=== PATIENT | male | born 1950 | race Caucasian/White ===

== ENCOUNTER 2016-07-18 12:36 | Inpatient (IN) | payer MEDICARE, OTHER ==
[~2016-07-18] VITALS: Ht 170.2 cm; Wt 82.6 kg
[2016-07-18] VITALS (26 sets, daily range): BP systolic 90–165; BP diastolic 53–103
[~2016-07-18 12:36] MED LIST: ASPI-1035 PO; ATOR40TA70 PO; CARV6.2548 PO; CHOL100026 PO; FURO40TA5 PO; GABA-529 PO; GLIP10TA10 PO; LEVO50TA8 PO; LINA5TAB PO
[2016-07-18] MEDS ORDERED: NICARDIPINE 100 MG in SODIUM CHLORIDE 0.9% 60 ML IV PRN (13:45)
[2016-07-18] MEDS ORDERED: MANNITOL 12.5G (25%) VIAL 50ML IV SCH (14:00)
[2016-07-18 14:14] LABS: INR 1.1
[2016-07-18 14:16] LABS: ALBUMIN 3.5 g/dL (3.4-5.0); ANION GAP 14; CALCIUM 8.7 mg/dL (8.5-10.1); CARBON DIOXIDE 26 mEq/L (21-32); CHLORIDE 103 mEq/L (98-107); INDEX HEMOLYSI 1 (1-3); INDEX ICTERIC 1 (1-4); INDEX LIPEMIC 1 (1-3); LIPASE 153 IU/L (73-393); UREA NITROGEN BLOOD 23 mg/dL (7-21)
[2016-07-18 14:22] LABS: ALANINE AMINOTRANSFERASE 22 IU/L (13-61); TROPONIN I 0.26 ng/mL (0.00-0.04); eGFR > 60 mL/min (>60)
[2016-07-18 14:24] LABS: BASOPHILS % 0.3 % (0.0-2.0); EOSINOPHILS % 2.8 % (0.0-5.0); LYMPHOCYTES % 24.2 % (20.0-50.0); MEAN CORPUSCULAR HEMOGLOBIN 30.1 pg (28.0-32.0); MEAN CORPUSCULAR HGB CONC 34.3 g/dL (31.0-37.0); MEAN CORPUSCULAR VOLUME 87.6 fL (80.0-94.0); MEAN PLATELET VOLUME 8.2 fl (7.4-10.4); MONOCYTES % 8.9 % (2.0-8.0); NEUTROPHILS % 63.8 % (40.0-76.0); PLATELET 226 x1000/uL (130-400); RED BLOOD CELL COUNT 4.33 mill/uL (4.7-6.1); RED CELL DISTRIBUTION WIDTH 13.2 % (11.6-14.6); WHITE BLOOD COUNT 6.9 x1000/uL (4.5-11.0)
[2016-07-18] MEDS ORDERED: SODIUM CHLORIDE 0.9% 500 ML IV ONE (15:24)
[2016-07-18] MEDS: PHENYTOIN SODIUM 100MG/2ML VIAL IV SCH ×2 (15:27→22:20)
[2016-07-18] MEDS: MANNITOL 20% 100 ML IV SCH ×2 (15:35→20:15)
[2016-07-18] MEDS: NICARDIPINE 100 MG in SODIUM CHLORIDE 0.9% 60 ML IV PRN (16:11)
[2016-07-18 17:03] LABS: CLARITY URINE CLEAR (CLEAR); COLOR URINE YELLOW (YELLOW); GLUCOSE URINE NEGATIVE (NEGATIVE); KETONES URINE NEGATIVE (NEGATIVE); LEUKOCYTE ESTERASE URINE NEGATIVE (NEGATIVE); NITRITE URINE NEGATIVE (NEGATIVE); OCCULT BLOOD URINE TRACE (NEGATIVE); PH URINE 5.5 (4.5-8.0); PROTEIN URINE NEGATIVE (NEGATIVE); SPECIFIC GRAVITY URINE 1.013 (1.005-1.030); UROBILINOGEN URINE 0.2 E.U./dL (0.2-1.0)
[2016-07-18] MEDS: DEXAMETHASONE 4MG/ML 1ML VIAL IV SCH ×2 (17:27→23:18)
[2016-07-18] MEDS: DEXT 5%/LACTATED RINGERS 1,000 ML IV SCH (17:27)
[2016-07-18 17:29] LABS: BACTERIA URINE NONE SEEN; RBC URINE NONE SEEN /hpf (0-2); SQUAMOUS EPITHELIAL CELL URINE RARE /lpf (RARE/1+); WBC URINE NONE SEEN /hpf (0-2)
[2016-07-19] VITALS (95 sets, daily range): BP systolic 89–198; BP diastolic 49–157
[2016-07-19] MEDS: MANNITOL 20% 100 ML IV SCH ×3 (02:17→13:39)
[2016-07-19] MEDS: DEXAMETHASONE 4MG/ML 1ML VIAL IV SCH ×4 (05:32→23:50)
[2016-07-19] MEDS: PHENYTOIN SODIUM 100MG/2ML VIAL IV SCH ×3 (05:32→21:06)
[2016-07-19] MEDS: CEFAZOLIN 1000MG PREMIX 50 ML IV SCH ×3 (08:27→21:06)
[2016-07-19] MEDS ORDERED: DEXTROSE 50% WATER 50ML SYRINGE IV PRN ×2 (08:30→13:00)
[2016-07-19] MEDS ORDERED: INSULIN LISPRO 100 UNITS/ML SUBCUT SCH ×2 (12:00→13:00)
[2016-07-19] MEDS: DEXT 5%/LACTATED RINGERS 1,000 ML IV SCH (12:05)
[2016-07-19] MEDS: PANTOPRAZOLE SODIUM 40 MG/VIAL IV SCH (12:05)
[2016-07-19] MEDS: BLOOD SUGAR DIAGNOSTIC STRIP TEST SCH ×3 (12:06→21:23)
[2016-07-19] MEDS: INSULIN LISPRO 100 UNITS/ML SUBCUT SCH ×3 (12:55→21:28)
[2016-07-19] MEDS ORDERED: CEFAZOLIN SODIUM 1000MG/VIAL IV SCH (14:00)
[2016-07-19] MEDS: NICARDIPINE 100 MG in SODIUM CHLORIDE 0.9% 60 ML IV PRN (21:02)
[2016-07-20] VITALS (68 sets, daily range): BP systolic 116–176; BP diastolic 54–93
[2016-07-20 04:48] LABS: HEMOGLOBIN. 11.5 g/dL (14.0-18.0); MEAN CORPUSCULAR HEMOGLOBIN 29.6 pg (28.0-32.0); MEAN CORPUSCULAR VOLUME 86.9 fL (80.0-94.0); MEAN PLATELET VOLUME 8.5 fl (7.4-10.4); PLATELET 226 x1000/uL (130-400); RED BLOOD CELL COUNT 3.91 mill/uL (4.7-6.1); RED CELL DISTRIBUTION WIDTH 13.6 % (11.6-14.6); WHITE BLOOD COUNT 14.8 x1000/uL (4.5-11.0)
[2016-07-20 05:01] LABS: CALCIUM 8.2 mg/dL (8.5-10.1); PHENYTOIN 4.1 ug/mL (10-20)
[2016-07-20 05:08] LABS: DIFFERENTIAL COMMENT 1
[2016-07-20] MEDS: BLOOD SUGAR DIAGNOSTIC STRIP TEST SCH ×4 (06:15→20:04)
[2016-07-20] MEDS: DEXAMETHASONE 4MG/ML 1ML VIAL IV SCH ×2 (06:24→20:09)
[2016-07-20] MEDS: PHENYTOIN SODIUM 100MG/2ML VIAL IV SCH ×3 (06:24→21:05)
[2016-07-20] MEDS: INSULIN LISPRO 100 UNITS/ML SUBCUT SCH ×4 (06:24→20:10)
[2016-07-20] MEDS: CEFAZOLIN 1000MG PREMIX 50 ML IV SCH ×3 (06:24→21:06)
[2016-07-20 06:54] LABS: PLATELET ESTIMATE NORMAL
[2016-07-20] MEDS: PANTOPRAZOLE SODIUM 40 MG/VIAL IV SCH (07:44)
[2016-07-20] MEDS ORDERED: SODIUM CHLORIDE 0.9% 500 ML IV SCH (09:15)
[2016-07-20] MEDS ORDERED: GELATIN SPONGE,ABSORBABLE SZ 100 ONE (10:00)
[2016-07-20] MEDS ORDERED: THROMBIN (BOVINE) 5000 UNITS/VIAL TOP ONE (10:01)
[2016-07-20] MEDS ORDERED: NORMAL SALINE 0.9% 10 ML SYR ONE (10:01)
[2016-07-20] MEDS ORDERED: LIDOCAINE HCL/EPINEPHRINE 0.5%-EPI 1:200,000 50 ML VIAL INFIL ONE (10:01)
[2016-07-20] MEDS ORDERED: PROPOFOL 200MG/20ML VIAL IV ONE (10:02)
[2016-07-20] MEDS ORDERED: BACITRACIN 50,000 UNITS/VIAL ONE (10:02)
[2016-07-20] MEDS ORDERED: ROCURONIUM BROMIDE 10MG/ML VIAL 5ML IV ONE (10:02)
[2016-07-20] MEDS ORDERED: BACITRACIN ZINC 15GM TUBE TOP ONE (10:15)
[2016-07-20] MEDS ORDERED: PHENYTOIN SODIUM 800 MG in SODIUM CHLORIDE 0.9% 100 ML IV SCH (11:00)
[2016-07-20] MEDS ORDERED: MIDAZOLAM HCL 2 MG/2 ML VIAL ONE (11:03)
[2016-07-20] MEDS ORDERED: FENTANYL CITRATE/PF 50MCG/ML 5ML VIAL ONE (11:03)
[2016-07-20] MEDS ORDERED: MANNITOL 20% 0 ML IV ONE (11:06)
[2016-07-20] MEDS ORDERED: FUROSEMIDE 40MG/4ML VIAL ONE (11:06)
[2016-07-20] MEDS ORDERED: NITROGLYCERIN 50MG PREMIX 0 ML IV ONE (11:07)
[2016-07-20] MEDS ORDERED: GLYCOPYRROLATE 0.2 MG/ML 2ML VIAL ONE (13:34)
[2016-07-20] MEDS ORDERED: EPHEDRINE SULFATE 50MG/ML VIAL ONE (13:34)
[2016-07-20] MEDS ORDERED: ESMOLOL HCL 10MG/ML 10ML VIAL IV ONE (13:37)
[2016-07-20] MEDS ORDERED: MORPHINE SULFATE 2 MG/ML CPJ (NOT FOR IM USE) IV PRN (14:30)
[2016-07-20] MEDS: DEXT 5%/0.9% NACL 1,000 ML IV SCH (15:34)
[2016-07-20] MEDS: COMBIGAN OP SCH (17:00)
[2016-07-20] MEDS ORDERED: COMBIGAN OT SCH (17:00)
[2016-07-20] MEDS: MORPHINE SULFATE 2 MG/ML CPJ (NOT FOR IM USE) IV PRN (18:45)
[2016-07-20] MEDS: NICARDIPINE 100 MG in SODIUM CHLORIDE 0.9% 60 ML IV PRN (18:47)
[2016-07-21] VITALS (67 sets, daily range): BP systolic 129–168; BP diastolic 61–105
[2016-07-21] MEDS: PHENYTOIN SODIUM 100MG/2ML VIAL IV SCH ×3 (05:06→21:06)
[2016-07-21] MEDS: CEFAZOLIN 1000MG PREMIX 50 ML IV SCH ×2 (05:06→13:29)
[2016-07-21 05:36] LABS: HEMOGLOBIN. 12.4 g/dL (14.0-18.0); MEAN CORPUSCULAR HEMOGLOBIN 29.7 pg (28.0-32.0); MEAN CORPUSCULAR HGB CONC 34.3 g/dL (31.0-37.0); MEAN CORPUSCULAR VOLUME 86.6 fL (80.0-94.0); MEAN PLATELET VOLUME 8.5 fl (7.4-10.4); PLATELET 231 x1000/uL (130-400); RED BLOOD CELL COUNT 4.16 mill/uL (4.7-6.1); RED CELL DISTRIBUTION WIDTH 13.4 % (11.6-14.6); WHITE BLOOD COUNT 15.6 x1000/uL (4.5-11.0)
[2016-07-21 05:41] LABS: CALCIUM 7.9 mg/dL (8.5-10.1)
[2016-07-21] MEDS: BLOOD SUGAR DIAGNOSTIC STRIP TEST SCH ×3 (05:42→16:48)
[2016-07-21] MEDS: MORPHINE SULFATE 2 MG/ML CPJ (NOT FOR IM USE) IV PRN (06:08)
[2016-07-21] MEDS: INSULIN LISPRO 100 UNITS/ML SUBCUT SCH ×4 (06:09→20:40)
[2016-07-21 06:27] LABS: DIFFERENTIAL COMMENT 1
[2016-07-21 08:50] LABS: PLATELET ESTIMATE NORMAL
[2016-07-21] MEDS: NICARDIPINE 100 MG in SODIUM CHLORIDE 0.9% 60 ML IV PRN (09:15)
[2016-07-21] MEDS: COMBIGAN OP SCH ×2 (09:24→17:50)
[2016-07-21] MEDS: DEXAMETHASONE 4MG/ML 1ML VIAL IV SCH ×2 (09:24→20:38)
[2016-07-21] MEDS: DEXT 5%/0.9% NACL 1,000 ML IV SCH ×3 (09:27→20:38)
[2016-07-21] MEDS: PANTOPRAZOLE SODIUM 40 MG/VIAL IV SCH (11:56)
[2016-07-21] MEDS ORDERED: AMLODIPINE 5MG TABLET PO NR (15:15)
[2016-07-21] MEDS ORDERED: INSULIN LISPRO 100 UNITS/ML SUBCUT NR (17:30)
[2016-07-21] MEDS: INSULIN DETEMIR UD 100 UNITS/ML SYR SUBCUT SCH (21:07)
[2016-07-22] VITALS (57 sets, daily range): BP systolic 121–182; BP diastolic 55–86
[2016-07-22 05:23] LABS: HEMATOCRIT. 33.7 % (42.0-52.0); HEMOGLOBIN. 11.5 g/dL (14.0-18.0); MEAN CORPUSCULAR HGB CONC 34.2 g/dL (31.0-37.0); MEAN CORPUSCULAR VOLUME 87.6 fL (80.0-94.0); MEAN PLATELET VOLUME 8.3 fl (7.4-10.4); PLATELET 190 x1000/uL (130-400); RED BLOOD CELL COUNT 3.85 mill/uL (4.7-6.1); RED CELL DISTRIBUTION WIDTH 13.7 % (11.6-14.6); WHITE BLOOD COUNT 9.4 x1000/uL (4.5-11.0)
[2016-07-22 05:38] LABS: DIFFERENTIAL COMMENT 1
[2016-07-22 05:46] LABS: CALCIUM 7.4 mg/dL (8.5-10.1)
[2016-07-22] MEDS: PHENYTOIN SODIUM 100MG/2ML VIAL IV SCH ×2 (06:04→14:36)
[2016-07-22] MEDS: DEXT 5%/0.9% NACL 1,000 ML IV SCH (06:04)
[2016-07-22] MEDS: BLOOD SUGAR DIAGNOSTIC STRIP TEST SCH ×4 (06:04→20:15)
[2016-07-22] MEDS: MORPHINE SULFATE 2 MG/ML CPJ (NOT FOR IM USE) IV PRN (06:07)
[2016-07-22] MEDS: INSULIN LISPRO 100 UNITS/ML SUBCUT SCH ×4 (06:08→20:20)
[2016-07-22] MEDS ORDERED: ENALAPRIL 1.25MG/ML VIAL 1ML IV PRN (07:45)
[2016-07-22] MEDS: PANTOPRAZOLE SODIUM 40 MG/VIAL IV SCH (07:52)
[2016-07-22] MEDS: DEXAMETHASONE 4MG/ML 1ML VIAL IV SCH (07:53)
[2016-07-22] MEDS: AMLODIPINE 5MG TABLET PO SCH ×2 (07:53→20:19)
[2016-07-22] MEDS ORDERED: AMLODIPINE 5MG TABLET PO SCH (09:00)
[2016-07-22 09:04] LABS: PLATELET ESTIMATE NORMAL
[2016-07-22] MEDS: COMBIGAN OP SCH ×2 (09:05→17:31)
[2016-07-22] MEDS: INSULIN DETEMIR UD 100 UNITS/ML SYR SUBCUT SCH ×2 (10:55→22:29)
[2016-07-22] MEDS: HYDRALAZINE HCL 25MG TABLET PO SCH ×2 (14:36→22:27)
[2016-07-22] MEDS: PHENYTOIN SODIUM EXTENDED 100MG CAPSULE PO SCH (22:27)
[2016-07-23] VITALS: BP 116/70
[2016-07-23 04:00] VITALS: BP 122/78
[2016-07-23] MEDS: HYDRALAZINE HCL 25MG TABLET PO SCH ×3 (06:37→21:25)
[2016-07-23] MEDS: PHENYTOIN SODIUM EXTENDED 100MG CAPSULE PO SCH ×3 (06:37→21:25)
[2016-07-23] MEDS: BLOOD SUGAR DIAGNOSTIC STRIP TEST SCH ×4 (06:37→21:00)
[2016-07-23 07:17] LABS: BASOPHILS % 0.1 % (0.0-2.0); EOSINOPHILS % 0.6 % (0.0-5.0); HEMATOCRIT. 36.9 % (42.0-52.0); HEMOGLOBIN. 12.9 g/dL (14.0-18.0); LYMPHOCYTES % 21.7 % (20.0-50.0); MEAN CORPUSCULAR HEMOGLOBIN 30.6 pg (28.0-32.0); MEAN CORPUSCULAR HGB CONC 35.1 g/dL (31.0-37.0); MEAN CORPUSCULAR VOLUME 87.2 fL (80.0-94.0); MEAN PLATELET VOLUME 7.8 fl (7.4-10.4); MONOCYTES % 8.4 % (2.0-8.0); NEUTROPHILS % 69.2 % (40.0-76.0); PLATELET 208 x1000/uL (130-400); RED BLOOD CELL COUNT 4.23 mill/uL (4.7-6.1); RED CELL DISTRIBUTION WIDTH 13.9 % (11.6-14.6); WHITE BLOOD COUNT 9.6 x1000/uL (4.5-11.0)
[2016-07-23] MEDS: INSULIN LISPRO 100 UNITS/ML SUBCUT SCH ×4 (07:50→21:00)
[2016-07-23 08:00] VITALS: BP 130/89
[2016-07-23 08:24] LABS: ANION GAP 14; CALCIUM 7.7 mg/dL (8.5-10.1); CARBON DIOXIDE 24 mEq/L (21-32); CHLORIDE 106 mEq/L (98-107); INDEX HEMOLYSI 1 (1-3); INDEX ICTERIC 1 (1-4); INDEX LIPEMIC 1 (1-3); UREA NITROGEN BLOOD 36 mg/dL (7-21); eGFR > 60 mL/min (>60)
[2016-07-23] MEDS: PANTOPRAZOLE SODIUM 40 MG/VIAL IV SCH (10:03)
[2016-07-23] MEDS: MORPHINE SULFATE 2 MG/ML CPJ (NOT FOR IM USE) IV PRN (10:03)
[2016-07-23] MEDS: DEXAMETHASONE 2MG TABLET PO SCH (10:19)
[2016-07-23] MEDS: COMBIGAN OP SCH ×2 (10:19→17:31)
[2016-07-23] MEDS: AMLODIPINE 5MG TABLET PO SCH ×2 (10:20→21:25)
[2016-07-23] MEDS: INSULIN DETEMIR UD 100 UNITS/ML SYR SUBCUT SCH ×2 (11:25→21:33)
[2016-07-23 12:00] VITALS: BP 145/85
[2016-07-23] MEDS ORDERED: LACTULOSE 20G/30ML UDC PO SCH (12:45)
[2016-07-23 16:00] VITALS: BP 120/74
[2016-07-23 20:00] VITALS: BP 133/81
[2016-07-24] VITALS (7 sets, daily range): BP systolic 110–166; BP diastolic 70–88
[2016-07-24 05:34] LABS: ANION GAP 15; CALCIUM 8.1 mg/dL (8.5-10.1); CARBON DIOXIDE 22 mEq/L (21-32); CHLORIDE 105 mEq/L (98-107); INDEX HEMOLYSI 4 (1-3); INDEX ICTERIC 1 (1-4); INDEX LIPEMIC 1 (1-3); PHENYTOIN 10.6 ug/mL (10-20); UREA NITROGEN BLOOD 26 mg/dL (7-21); eGFR > 60 mL/min (>60)
[2016-07-24] MEDS: HYDRALAZINE HCL 25MG TABLET PO SCH ×3 (06:31→21:53)
[2016-07-24] MEDS: BLOOD SUGAR DIAGNOSTIC STRIP TEST SCH ×4 (06:31→21:53)
[2016-07-24] MEDS: INSULIN LISPRO 100 UNITS/ML SUBCUT SCH ×4 (06:31→21:00)
[2016-07-24] MEDS: PHENYTOIN SODIUM EXTENDED 100MG CAPSULE PO SCH ×3 (06:31→21:51)
[2016-07-24 07:37] LABS: BASOPHILS % 0.4 % (0.0-2.0); HEMATOCRIT. 39.2 % (42.0-52.0); HEMOGLOBIN. 13.3 g/dL (14.0-18.0); LYMPHOCYTES % 29.4 % (20.0-50.0); MEAN CORPUSCULAR HEMOGLOBIN 29.2 pg (28.0-32.0); MEAN CORPUSCULAR HGB CONC 33.9 g/dL (31.0-37.0); MEAN PLATELET VOLUME 9.1 fl (7.4-10.4); MONOCYTES % 9.5 % (2.0-8.0); NEUTROPHILS % 57.7 % (40.0-76.0); PLATELET 154 x1000/uL (130-400); RED BLOOD CELL COUNT 4.56 mill/uL (4.7-6.1); RED CELL DISTRIBUTION WIDTH 13.3 % (11.6-14.6); WHITE BLOOD COUNT 12.3 x1000/uL (4.5-11.0)
[2016-07-24] MEDS: COMBIGAN OP SCH ×2 (08:17→16:50)
[2016-07-24] MEDS: FAMOTIDINE 20MG TABLET PO SCH ×2 (08:17→16:49)
[2016-07-24] MEDS: DEXAMETHASONE 2MG TABLET PO SCH (08:17)
[2016-07-24] MEDS: AMLODIPINE 5MG TABLET PO SCH ×2 (08:18→21:00)
[2016-07-24] MEDS: INSULIN DETEMIR UD 100 UNITS/ML SYR SUBCUT SCH ×2 (10:26→21:53)
[2016-07-25] VITALS: BP 115/81
[2016-07-25 04:00] VITALS: BP 129/72
[2016-07-25 05:11] LABS: BASOPHILS % 0.1 % (0.0-2.0); EOSINOPHILS % 4.6 % (0.0-5.0); HEMATOCRIT. 35.2 % (42.0-52.0); LYMPHOCYTES % 31.6 % (20.0-50.0); MEAN CORPUSCULAR HEMOGLOBIN 29.3 pg (28.0-32.0); MEAN CORPUSCULAR HGB CONC 33.9 g/dL (31.0-37.0); MEAN CORPUSCULAR VOLUME 86.3 fL (80.0-94.0); MEAN PLATELET VOLUME 7.7 fl (7.4-10.4); MONOCYTES % 9.5 % (2.0-8.0); NEUTROPHILS % 54.2 % (40.0-76.0); PLATELET 173 x1000/uL (130-400); RED BLOOD CELL COUNT 4.08 mill/uL (4.7-6.1); RED CELL DISTRIBUTION WIDTH 13.5 % (11.6-14.6); WHITE BLOOD COUNT 5.7 x1000/uL (4.5-11.0)
[2016-07-25 05:50] LABS: ANION GAP 15; CARBON DIOXIDE 23 mEq/L (21-32); CHLORIDE 102 mEq/L (98-107); INDEX HEMOLYSI 1 (1-3); INDEX ICTERIC 1 (1-4); INDEX LIPEMIC 1 (1-3); PHENYTOIN 9.3 ug/mL (10-20); UREA NITROGEN BLOOD 26 mg/dL (7-21); eGFR > 60 mL/min (>60)
[2016-07-25] MEDS: HYDRALAZINE HCL 25MG TABLET PO SCH ×2 (06:34→13:37)
[2016-07-25] MEDS: BLOOD SUGAR DIAGNOSTIC STRIP TEST SCH ×2 (06:34→12:23)
[2016-07-25] MEDS: PHENYTOIN SODIUM EXTENDED 100MG CAPSULE PO SCH ×2 (06:35→13:37)
[2016-07-25] MEDS: INSULIN LISPRO 100 UNITS/ML SUBCUT SCH ×2 (06:54→13:41)
[2016-07-25 08:00] VITALS: BP 128/97
[2016-07-25] MEDS: COMBIGAN OP SCH (08:40)
[2016-07-25] MEDS: FAMOTIDINE 20MG TABLET PO SCH (08:40)
[2016-07-25] MEDS: AMLODIPINE 5MG TABLET PO SCH (08:41)
[2016-07-25] MEDS: DEXAMETHASONE 2MG TABLET PO SCH (08:41)
[2016-07-25] MEDS ORDERED: PHENYTOIN SODIUM 700 MG in SODIUM CHLORIDE 0.9% 100 ML IV NR (09:00)
[2016-07-25] MEDS: INSULIN DETEMIR UD 100 UNITS/ML SYR SUBCUT SCH (10:19)
[2016-07-25 12:00] VITALS: BP 142/91
== END 2016-07-25 14:30 | disposition home health service (06) | DRG 25 ==
LOC: ER 13:07 → MICUSO 15:07 → 6WST 07-22 21:45
PROVIDERS: ADMIT Internal Medicine; ATTEND Internal Medicine
PROC: 00C40ZZ Extirpation of Matter from Intracranial Subdural Space, Open Approach (ICD-10-PCS; principal; 2016-07-20 12:00)
DX: S06.5X0A Traumatic subdural hemorrhage without loss of consciousness, initial encounter (principal); N17.0 Acute kidney failure with tubular necrosis; G92 Toxic encephalopathy; N18.6 End stage renal disease; I50.22 Chronic systolic (congestive) heart failure; I13.2 Hypertensive heart and chronic kidney disease with heart failure and with stage 5 chronic kidney disease, or end stage renal disease; R47.01 Aphasia; I25.10 Atherosclerotic heart disease of native coronary artery without angina pectoris; K21.9 Gastro-esophageal reflux disease without esophagitis; I25.5 Ischemic cardiomyopathy; E03.9 Hypothyroidism, unspecified; D64.9 Anemia, unspecified; E11.22 Type 2 diabetes mellitus with diabetic chronic kidney disease; E78.00 Pure hypercholesterolemia, unspecified; E78.5 Hyperlipidemia, unspecified; I35.1 Nonrheumatic aortic (valve) insufficiency; N28.1 Cyst of kidney, acquired; W19.XXXA Unspecified fall, initial encounter; I34.0 Nonrheumatic mitral (valve) insufficiency; R29.6 Repeated falls; T38.0X5A Adverse effect of glucocorticoids and synthetic analogues, initial encounter; Z79.899 Other long term (current) drug therapy; Z95.1 Presence of aortocoronary bypass graft; Z95.810 Presence of automatic (implantable) cardiac defibrillator; Z88.8 Allergy status to other drugs, medicaments and biological substances; Y93.89 Activity, other specified; Z91.81 History of falling; Y92.89 Other specified places as the place of occurrence of the external cause; Y99.8 Other external cause status
CPT/HCPCS: 36415; 70450; 71010; 76770; 80048; 80053; 80185; 81001; 82962; 83690; 84484; 85025; 85610; 86850; 86900; 88304; 93005; 93971; 96365; 97116; 97163; 97166; 97530; 99291; A4216; C1893; C9113; J0171; J0690; J1100; J1165; J1815; J1940; J2150; J2250; J2270; J2704; J3010; J3490; J7040; J7042; J7050; J8540

== ENCOUNTER → 2016-09-01 | Outpatient (CLI) | payer MEDICARE, OTHER | END | disposition home or self-care (01) | LOC: CT 10:01 | PROVIDERS: ATTEND Neurological Surgery | DX: G31.9 Degenerative disease of nervous system, unspecified (principal); Z98.890 Other specified postprocedural states | CPT/HCPCS: 70450 ==

== ENCOUNTER → 2016-10-28 | Outpatient (CLI) | payer MEDICARE, OTHER ==
[~2016-10-28] MED LIST changes: -ASPI-1035 PO; +ASPI-1159 PO; +COMBIGAN
== END | disposition home or self-care (01) ==
LOC: CT 09:29
PROVIDERS: ATTEND Neurological Surgery
DX: I67.82 Cerebral ischemia (principal)
CPT/HCPCS: 70450

== ENCOUNTER → 2017-02-13 | Outpatient (CLI) | payer MEDICARE, OTHER ==
[~2017-02-13] MED LIST changes: -CHOL100026 PO; +CHOL100044 PO
== END | disposition home or self-care (01) ==
LOC: CT 10:23
PROVIDERS: ATTEND Neurological Surgery
DX: G31.9 Degenerative disease of nervous system, unspecified (principal); R90.82 White matter disease, unspecified
CPT/HCPCS: 70450

== ENCOUNTER 2018-01-04 08:32 | Day surgery (SDC) | payer MEDICARE ==
[~2018-01-04] VITALS: Ht 170.2 cm; Wt 79.4 kg
[2018-01-04] MEDS ORDERED: LIDOCAINE HCL 1% 10 MG/ML 10ML VIAL ONE ×2 (10:00→11:42)
[2018-01-04] MEDS ORDERED: IODIXANOL 320MG/ML 100 ML BOTTLE IV ONE (11:42)
[2018-01-04] MEDS ORDERED: FENTANYL CITRATE/PF 50MCG/ML 2ML VIAL ONE (11:53)
[2018-01-04] MEDS ORDERED: MIDAZOLAM HCL 2 MG/2 ML VIAL ONE (11:53)
[2018-01-04] MEDS ORDERED: HYDRALAZINE 20MG/ML VIAL ONE (12:24)
[2018-01-04] MEDS ORDERED: ACETAMINOPHEN 325MG TABLET PO PRN (12:45)
[2018-01-04] MEDS ORDERED: ONDANSETRON HCL 4MG/2ML INJ IV PRN (12:45)
[2018-01-04] MEDS ORDERED: DEXTROSE 50% WATER 50ML SYRINGE IV PRN (14:00)
[2018-01-04] MEDS ORDERED: INSULIN LISPRO 100 UNITS/ML SUBCUT NR (14:01)
[2018-01-04] MEDS ORDERED: BLOOD SUGAR DIAGNOSTIC STRIP TEST SCH (17:00)
[2018-01-04] MEDS ORDERED: INSULIN LISPRO 100 UNITS/ML SUBCUT SCH (17:00)
== END 2018-01-04 16:00 | disposition home or self-care (01) ==
LOC: CCL 08:32
PROVIDERS: ATTEND Specialist
DX: I70.221 Atherosclerosis of native arteries of extremities with rest pain, right leg (principal); E03.9 Hypothyroidism, unspecified; E78.5 Hyperlipidemia, unspecified; I25.10 Atherosclerotic heart disease of native coronary artery without angina pectoris; I42.9 Cardiomyopathy, unspecified; E11.22 Type 2 diabetes mellitus with diabetic chronic kidney disease; I12.9 Hypertensive chronic kidney disease with stage 1 through stage 4 chronic kidney disease, or unspecified chronic kidney disease; N18.9 Chronic kidney disease, unspecified; Z95.1 Presence of aortocoronary bypass graft; Z88.8 Allergy status to other drugs, medicaments and biological substances; Z79.899 Other long term (current) drug therapy; Z98.890 Other specified postprocedural states
CPT/HCPCS: 36247; 75710; 82962; 99152; 99153; C1760; C1769; C1893; J0360; J1644; J1815; J2250; J3010; J3490; Q9967

== ENCOUNTER → 2019-10-21 | Outpatient (CLI) | payer MEDICARE ==
[~2019-10-21] MED LIST changes: -ASPI-1159 PO; +ASPI-1497 PO; +CARV25TA47 MT; +CLOP75TA4 MT; +DILT180C66 MT; +FURO40TA5 MT; +HYDR-4134 MT
== END | disposition home or self-care (01) ==
LOC: EDBD 08:58 → LAB 08:58
PROVIDERS: ATTEND Specialist
DX: Z03.818 Encounter for observation for suspected exposure to other biological agents ruled out (principal)
CPT/HCPCS: C9803; U0003

== ENCOUNTER 2020-08-19 11:41 | Inpatient (IN) | payer MEDICAID, MEDICARE ==
[~2020-08-19] VITALS: Ht 157.5 cm; Wt 134.7 kg
[~2020-08-19 11:41] MED LIST changes: -CARV6.2548 PO; -CHOL100044 PO; +CLOP-31 MT; -CLOP75TA4 MT; -COMBIGAN; -FURO40TA5 PO; -GABA-529 PO; -LINA5TAB PO
[2020-08-19 12:29] LABS: BASOPHILS % 0.5 % (0.0-2.0); EOSINOPHILS % 1.6 % (0.0-5.0); HEMATOCRIT. 35.9 % (42.0-52.0); HEMOGLOBIN. 12.2 g/dL (14.0-18.0); LYMPHOCYTES % 22.5 % (20.0-50.0); MEAN CORPUSCULAR HEMOGLOBIN 30.2 pg (28.0-32.0); MEAN CORPUSCULAR VOLUME 89.2 fL (80.0-94.0); MONOCYTES % 7.8 % (2.0-8.0); NEUTROPHILS % 67.6 % (40.0-76.0); PLATELET 230 x1000/uL (130-400); RED BLOOD CELL COUNT 4.03 mill/uL (4.7-6.1); RED CELL DISTRIBUTION WIDTH 14.1 % (11.6-14.6)
[2020-08-19 12:35] LABS: CHLORIDE 109 mEq/L (98-107)
[2020-08-19 12:42] LABS: *AMPHETAMINES SCREEN URINE NEGATIVE (NEGATIVE); *BARBITURATES SCREEN URINE NEGATIVE (NEGATIVE); *BENZODIAZEPINES SCREEN URINE NEGATIVE (NEGATIVE); *COCAINE SCREEN URINE NEGATIVE (NEGATIVE); METHADONE URINE SCREEN NEGATIVE (NEGATIVE); OPIATES URINE SCREEN NEGATIVE (NEGATIVE)
[2020-08-19 12:43] LABS: CANNABINOID URINE SCREEN NEGATIVE (NEGATIVE); PHENCYCLIDINE URINE SCREEN NEGATIVE (NEGATIVE)
[2020-08-19] MEDS ORDERED: FUROSEMIDE 40MG/4ML VIAL IV NR (13:30)
[2020-08-19] MEDS ORDERED: NITROGLYCERIN OINT 1GM/INCH UDPKT TD NR (13:30)
[2020-08-19] MEDS ORDERED: ASPIRIN 81MG TABLET PO NR (13:30)
[2020-08-19] MEDS ORDERED: MAGNESIUM HYDROXIDE 400MG/5ML 30ML UDC PO PRN (17:00)
[2020-08-19] MEDS ORDERED: GUAIFENESIN 200MG/10ML SUGAR FREE UDC PO PRN (17:00)
[2020-08-19] MEDS ORDERED: MAGNESIUM/ALUMINUM HYDROXIDE/SIMETHICONE 30ML UDC PO PRN (17:00)
[2020-08-19] MEDS ORDERED: DEXTROSE 50% WATER 50ML SYRINGE IV PRN (17:00)
[2020-08-19] MEDS ORDERED: ONDANSETRON HCL 4MG/2ML INJ IV PRN (17:00)
[2020-08-19] MEDS ORDERED: ZOLPIDEM TARTRATE 5MG TABLET PO PRN (17:00)
[2020-08-19] MEDS ORDERED: ACETAMINOPHEN 325MG TABLET PO PRN ×2 (17:00)
[2020-08-19] MEDS ORDERED: MORPHINE SULFATE 2 MG/ML CPJ (NOT FOR IM USE) IV PRN (17:00)
[2020-08-19] MEDS ORDERED: DIPHENHYDRAMINE 50MG/ML VIAL IV PRN (17:00)
[2020-08-19] MEDS: INSULIN LISPRO 100 UNITS/ML SUBCUT SCH ×2 (17:35→22:35)
[2020-08-19] MEDS: HYDRALAZINE 20MG/ML VIAL IV PRN (17:35)
[2020-08-19] MEDS: BLOOD SUGAR DIAGNOSTIC STRIP TEST SCH ×2 (17:35→21:00)
[2020-08-19 20:00] VITALS: BP 142/65
[2020-08-19] MEDS ORDERED: ENOXAPARIN 80MG/0.8ML SYR SUBCUT NR (21:00)
[2020-08-19] MEDS: PANTOPRAZOLE 40MG DR TABLET PO SCH (22:01)
[2020-08-19] MEDS: AMLODIPINE 5MG TABLET PO SCH (22:01)
[2020-08-19] MEDS: CARVEDILOL 12.5MG TABLET PO SCH (22:01)
[2020-08-19] MEDS: ATORVASTATIN CALCIUM 40MG TABLET PO SCH (22:02)
[2020-08-19] MEDS: SODIUM CHLORIDE 0.9% INJ 3ML FLUSH IVF SCH (22:02)
[2020-08-19] MEDS: FUROSEMIDE 40MG/4ML VIAL IVP SCH (22:02)
[2020-08-19] MEDS: NITROGLYCERIN OINT 1GM/INCH UDPKT TD SCH (22:04)
[2020-08-20] VITALS (14 sets, daily range): BP systolic 127–167; BP diastolic 62–89
[2020-08-20] MEDS ORDERED: GABA-532 MT (01:08)
[2020-08-20] MEDS ORDERED: CHOL2000 (01:08)
[2020-08-20] MEDS ORDERED: MULT-1146 MT (01:08)
[2020-08-20] MEDS ORDERED: BRIN8DRO EACHEYE ×2 (02:00→10:31)
[2020-08-20] MEDS ORDERED: BRIM10DR2 EACHEYE ×2 (02:00→10:31)
[2020-08-20] MEDS: INSULIN LISPRO 100 UNITS/ML SUBCUT SCH ×4 (06:11→20:47)
[2020-08-20] MEDS: LEVOTHYROXINE SODIUM 50MCG TABLET PO SCH (06:11)
[2020-08-20] MEDS: SODIUM CHLORIDE 0.9% INJ 3ML FLUSH IVF SCH ×3 (06:11→22:09)
[2020-08-20] MEDS: BLOOD SUGAR DIAGNOSTIC STRIP TEST SCH ×4 (06:11→20:17)
[2020-08-20] MEDS: PANTOPRAZOLE 40MG DR TABLET PO SCH ×2 (06:11→20:17)
[2020-08-20] MEDS: NITROGLYCERIN OINT 1GM/INCH UDPKT TD SCH ×3 (06:11→22:01)
[2020-08-20 06:47] LABS: BASOPHILS % 0.3 % (0.0-2.0); EOSINOPHILS % 2.2 % (0.0-5.0); HEMOGLOBIN. 11.4 g/dL (14.0-18.0); LYMPHOCYTES % 33.1 % (20.0-50.0); MEAN CORPUSCULAR VOLUME 89.6 fL (80.0-94.0); MEAN PLATELET VOLUME 8.4 fl (7.4-10.4); MONOCYTES % 9.9 % (2.0-8.0); NEUTROPHILS % 54.5 % (40.0-76.0); PLATELET 230 x1000/uL (130-400); RED CELL DISTRIBUTION WIDTH 14.5 % (11.6-14.6)
[2020-08-20] MEDS ORDERED: HEPARIN SODIUM 1,000 UNIT/1ML VIAL IV ONE (07:53)
[2020-08-20] MEDS ORDERED: LIDOCAINE HCL 1% 20ML VIAL (Pyxis) INJ ONE (07:59)
[2020-08-20] MEDS ORDERED: IODIXANOL 320MG/ML 100 ML BOTTLE IV ONE (07:59)
[2020-08-20] MEDS: CARVEDILOL 12.5MG TABLET PO SCH ×2 (08:00→20:17)
[2020-08-20] MEDS ORDERED: IOHEXOL-300 100 ML BOTTLE ONE (08:00)
[2020-08-20] MEDS ORDERED: FENTANYL CITRATE/PF 50MCG/ML 2ML VIAL ONE (08:55)
[2020-08-20] MEDS ORDERED: MIDAZOLAM HCL 2 MG/2 ML VIAL ONE (08:56)
[2020-08-20] MEDS: AMLODIPINE 5MG TABLET PO SCH ×2 (09:00→20:17)
[2020-08-20] MEDS: ASPIRIN 81MG EC TABLET PO SCH (09:00)
[2020-08-20] MEDS: FUROSEMIDE 40MG/4ML VIAL IVP SCH ×2 (09:00→18:04)
[2020-08-20] MEDS ORDERED: ATROPINE SULFATE 1MG/10ML SYR IV PRN (09:30)
[2020-08-20] MEDS ORDERED: ONDANSETRON HCL 4MG/2ML INJ IV PRN (09:30)
[2020-08-20] MEDS ORDERED: ACETAMINOPHEN 325MG TABLET PO PRN (09:30)
[2020-08-20] MEDS: ATORVASTATIN CALCIUM 40MG TABLET PO SCH (20:17)
[2020-08-20] MEDS: HYDRALAZINE 20MG/ML VIAL IV PRN (22:01)
[2020-08-21] VITALS (7 sets, daily range): BP systolic 101–146; BP diastolic 58–76
[2020-08-21] MEDS: PANTOPRAZOLE 40MG DR TABLET PO SCH (06:09)
[2020-08-21] MEDS: NITROGLYCERIN OINT 1GM/INCH UDPKT TD SCH ×2 (06:09→14:12)
[2020-08-21] MEDS: LEVOTHYROXINE SODIUM 50MCG TABLET PO SCH (06:09)
[2020-08-21] MEDS: BLOOD SUGAR DIAGNOSTIC STRIP TEST SCH ×2 (06:10→12:14)
[2020-08-21] MEDS: SODIUM CHLORIDE 0.9% INJ 3ML FLUSH IVF SCH ×2 (06:10→14:12)
[2020-08-21 07:24] LABS: BASOPHILS % 0.1 % (0.0-2.0); EOSINOPHILS % 2.7 % (0.0-5.0); HEMATOCRIT. 35.6 % (42.0-52.0); HEMOGLOBIN. 12.1 g/dL (14.0-18.0); LYMPHOCYTES % 27.8 % (20.0-50.0); MEAN CORPUSCULAR HEMOGLOBIN 30.2 pg (28.0-32.0); MEAN PLATELET VOLUME 8.2 fl (7.4-10.4); MONOCYTES % 9.5 % (2.0-8.0); NEUTROPHILS % 59.9 % (40.0-76.0); PLATELET 232 x1000/uL (130-400); RED BLOOD CELL COUNT 3.99 mill/uL (4.7-6.1); RED CELL DISTRIBUTION WIDTH 14.1 % (11.6-14.6)
[2020-08-21] MEDS: CARVEDILOL 12.5MG TABLET PO SCH ×2 (08:00→09:35)
[2020-08-21] MEDS: ASPIRIN 81MG EC TABLET PO SCH (08:25)
[2020-08-21] MEDS: INSULIN LISPRO 100 UNITS/ML SUBCUT SCH ×2 (08:26→12:14)
[2020-08-21] MEDS: AMLODIPINE 5MG TABLET PO SCH (08:29)
[2020-08-21] MEDS: FUROSEMIDE 40MG/4ML VIAL IVP SCH ×2 (08:39→09:35)
[2020-08-21] MEDS ORDERED: AMLO5TAB4 PO ×2 (15:58→15:59)
[2020-08-21] MEDS ORDERED: FUROSEMIDE 40MG TABLET PO SCH (21:00)
== END 2020-08-21 17:06 | disposition home or self-care (01) | DRG 280 ==
LOC: ER 11:41 → 8WST 13:27 → ENRESERV 17:16 → 3WST 08-20 09:56
PROVIDERS: ADMIT Internal Medicine; ATTEND Internal Medicine
PROC: 4A023N7 Measurement of Cardiac Sampling and Pressure, Left Heart, Percutaneous Approach (ICD-10-PCS; principal; 2020-08-20)
PROC: B211YZZ Fluoroscopy of Multiple Coronary Arteries using Other Contrast (ICD-10-PCS; 2020-08-20)
PROC: B212YZZ Fluoroscopy of Single Coronary Artery Bypass Graft using Other Contrast (ICD-10-PCS; 2020-08-20)
DX: I21.4 Non-ST elevation (NSTEMI) myocardial infarction (principal); I50.23 Acute on chronic systolic (congestive) heart failure; I13.0 Hypertensive heart and chronic kidney disease with heart failure and stage 1 through stage 4 chronic kidney disease, or unspecified chronic kidney disease; E03.9 Hypothyroidism, unspecified; E11.51 Type 2 diabetes mellitus with diabetic peripheral angiopathy without gangrene; E11.22 Type 2 diabetes mellitus with diabetic chronic kidney disease; E78.5 Hyperlipidemia, unspecified; I25.10 Atherosclerotic heart disease of native coronary artery without angina pectoris; I25.5 Ischemic cardiomyopathy; E78.00 Pure hypercholesterolemia, unspecified; I34.0 Nonrheumatic mitral (valve) insufficiency; E05.90 Thyrotoxicosis, unspecified without thyrotoxic crisis or storm; Z20.822 Contact with and (suspected) exposure to COVID-19; N18.9 Chronic kidney disease, unspecified; Z88.8 Allergy status to other drugs, medicaments and biological substances; Z95.1 Presence of aortocoronary bypass graft; Z95.810 Presence of automatic (implantable) cardiac defibrillator; Z95.5 Presence of coronary angioplasty implant and graft; Z79.84 Long term (current) use of oral hypoglycemic drugs; Z82.49 Family history of ischemic heart disease and other diseases of the circulatory system; Z83.3 Family history of diabetes mellitus; Z79.899 Other long term (current) drug therapy
CPT/HCPCS: 36415; 71045; 80048; 80053; 80305; 82962; 83036; 83880; 84443; 84484; 85025; 87426; 93005; 93459; 99285; C1760; C1769; C1887; C1893; J0360; J1644; J1650; J1815; J1940; J2250; J3010; J3490; Q9967